=== PATIENT | female | born 1995 | race Caucasian/White ===

== ENCOUNTER 2018-11-03 08:23 | Day surgery (SDC) | payer OTHER ==
[2018-11-03] MEDS ORDERED: LIDOCAINE 2% (SDV) 5 ML INJ (09:12)
[2018-11-03] MEDS ORDERED: PROPOFOL 20 ML ×2 (09:12→09:44)
[2018-11-03] MEDS ORDERED: ONDANSETRON 4 MG INJ IV (09:30)
== END 2018-11-03 11:01 | disposition home or self-care (01) ==
LOC: GIL 08:23
DX: K29.50 Unspecified chronic gastritis without bleeding (principal); K21.9 Gastro-esophageal reflux disease without esophagitis
CPT/HCPCS: 43239; 88305; 88312